=== PATIENT | female | born 2000 | race Caucasian/White ===

== ENCOUNTER 2021-09-16 00:57 | Emergency (ER) | payer SELFPAY ==
[~2021-09-16] VITALS: Ht 165.1 cm; Wt 88.5 kg
[2021-09-16 01:04] VITALS: BP 129/88
--- NOTE | 2021-09-16 01:09 | NUR ---
PT AMBULATED TO BED 5
--- NOTE | 2021-09-16 01:10 | NUR ---
Nubia rolon in [facility] - 09/16/21 at 0110 by SENG PT TAKEN TO BED 5
--- NOTE | 2021-09-16 01:44 | NUR ---
Dr. Younger examining patient.
[2021-09-16] MEDS ORDERED: COROTSOL LEFT EAR (01:52)
[2021-09-16] MEDS ORDERED: IBUP-2213 PO (01:52)
[2021-09-16 02:00] VITALS: BP 129/88
--- NOTE | 2021-09-16 02:00 | NUR ---
Patient discharged with v/s stable. Written and verbal after care instructions given and explained. Patient alert, oriented and verbalized understanding of instructions. Ambulatory with steady gait. All questions addressed prior to discharge. ID band removed. Patient advised to follow up with PMD. Rx of ibuprofen and cortisporin otc solution given. Patient educated on indication of medication including possible reaction and side effects. Opportunity to ask questions provided and answered.
== END 2021-09-16 02:00 | disposition home or self-care (01) ==
LOC: MED 00:57
DX: H60.92 Unspecified otitis externa, left ear (principal); F17.200 Nicotine dependence, unspecified, uncomplicated
CPT/HCPCS: 99283